=== PATIENT | male | born 1995 | race Caucasian/White ===

== ENCOUNTER → 2024-09-09 | Outpatient (CLI) | payer BC, SELFPAY ==
[2024-09-09 13:24] LABS: Microalbumin,Random Urine 15.1 mg/L (NO RANGE EST.); Microalbumin:Creatinine Ratio 10.2 mg/g CRE
[2024-09-09 13:58] LABS: ALB/GLOB Ratio 1.6 RATIO (0.9-2.4); AST(SGOT) 19 U/L (<=37); Alanine Aminotransfer ALT/SGPT 18 U/L (<=46); Albumin, Serum 4.5 g/dL (3.5-5.0); Alkaline Phosphatase 89 U/L (40-129); Anion Gap 12 (5-15); BUN 12 mg/dL (4-19); BUN/Creat Ratio 12.4 RATIO (10-20); Calcium,Total 9.6 mg/dL (7.6-11.0); Carbon Dioxide 25.6 mmol/L (21.0-32.0); Chloride 102 mmol/L (98-108); Cholesterol 168 mg/dL (<=200); Creatinine, Serum 0.97 mg/dL (0.70-1.20); EST Glomerular Filtration Rate 109 (>60); Globulin 2.9 g/dL (2.2-4.2); Glucose 146 mg/dL (70-99); High Density Lipoprotein 44 mg/dL; Low Density Lipoprotein Calc. 97 mg/dL; Protein, Total 7.4 g/dL (5.9-8.4); Sodium Level 140 mmol/L (133-145); Triglycerides 137 mg/dL; Very Low Density Lipoprotein 27 mg/dL (5-40); cholesterol:hdl ratio screen 3.84
== END | disposition home or self-care (01) ==
LOC: BIMLAB 09:18
PROVIDERS: Referring Provider Internal Medicine Endocrinology, Diabetes & Metabolism; Visit Provider Internal Medicine Endocrinology, Diabetes & Metabolism
DX: E10.65 Type 1 diabetes mellitus with hyperglycemia (principal)
CPT/HCPCS: 36415; 80053; 80061; 82043; 82570; 84443